=== PATIENT | female | born 1990 | race Caucasian/White ===

== ENCOUNTER 2019-02-24 10:24 | Emergency (ER) | payer MEDICAID ==
[~2019-02-24] VITALS: Ht 147.3 cm; Wt 57.2 kg
[2019-02-24 10:29] VITALS: BP_SYST 110
--- NOTE | 2019-02-24 10:35 | NUR ---
Patient to ER bed 2 to gown for evaluation. Side rails up. Report given to Horacio OLVERA.
--- NOTE | 2019-02-24 10:37 | NUR ---
Patient is awake, alert, and oriented x4. Patient reports that she has had "head pain" 2-3/10 for the past 2 years that moves around, first onset 2 years ago she stated she had nausea and dizziness. Patient denies nausea at this time.
--- NOTE | 2019-02-24 10:45 | NUR ---
ER Dr. Pollard at bedside examining patient.
[2019-02-24] MEDS ORDERED: KETOROLAC TROMETHAMINE 60 MG/2 ML VIAL IM ONE (11:15)
[2019-02-24 13:23] VITALS: BP_SYST 114
--- NOTE | 2019-02-24 13:23 | NUR ---
Patient given written and verbal discharge instructions and verbalizes understanding. ER MD discussed with patient the results and treatment provided. Patient in stable condition. ID arm band removed. Rx of naprosyn given. Patient educated on pain management and to follow up with PMD. Pain Scale 2/10, Dr. Pollard is aware. Opportunity for questions provided and answered. Medication side effect fact sheet provided.
== END 2019-02-24 13:23 | disposition home or self-care (01) ==
LOC: SED 10:24
DX: G43.909 Migraine, unspecified, not intractable, without status migrainosus (principal)
CPT/HCPCS: 70450-TC; 99284; J1885